=== PATIENT | male | born 1950 | race American Indian/Alaskan Native ===

== ENCOUNTER 2019-02-09 05:39 | Day surgery (SDC) | payer MEDICARE ==
--- NOTE | 2019-02-01 13:20 | Anesthesia Consultation ---
Anesthesia Consult and Med Hx Date of service: 02/01/19 - Airway Anesthetic Teeth Evaluation: Poor, Chipped, Crowns ROM Head & Neck: Adequate Mental/Hyoid Distance: Adequate Mallampati Class: Class III Intubation Access Assessment: Probably Good - Pulmonary Exam CTA: Yes - Cardiac Exam Cardiac Exam: No Murmur Anesthetic Concerns: Had Aortic Valve replacement in 2016. NO problems since. Did have a history of CHF prior to AVR. Currently taking daily lasix. History of stage 4 renal insufficiency, labs pending. Restricted to a 2L per day fluid intake. - Pre-Operative Health Status ASA Pre-Surgery Classification: ASA3 Proposed Anesthetic Plan: General - Pre-Anesthesia Comment Pre-Anesthesia Comments: Refer to cardiac exam comments - Pulmonary Hx Smoking: No Hx Asthma: No Hx Respiratory Symptoms: No SOB: No COPD: No Home Oxygen Therapy: No Hx Pneumonia: No Hx Sleep Apnea: No - Cardiovascular System Hx Hypertension: Yes Hx Coronary Artery Disease: No Hx Heart Attack/AMI: No Hx Angina: No Hx Percutaneous Transluminal Coronary Angioplasty (PTCA): No Hx Cardia Arrhythmia: No Hx Pacemaker: No Hx Internal Defibrillator: No Hx Valvular Heart Disease: No Hx Heart Murmur: No Hx Peripheral Vascular Disease: No - Central Nervous System Hx Neuromuscular Disorder: No Hx Seizures: No CVA: No Hx Back Pain: No Hx Psychiatric Problems: No - Gastrointestinal Hx Ulcer: No Hx Gastroesophageal Reflux Disease: No - Endocrine Hx Renal Disease: Yes (Diagnosed with Stage 4 renal insufficiency) Hx End Stage Renal Disease: No Hx Cirrhosis: No Hx Liver Disease: No Hx Insulin Dependent Diabetes: No Hx Non-Insulin Dependent Diabetes: No Hx Thyroid Disease: No Hx Hypothyroidism: No Hx Hyperthyroidism: No - Hematic Hx Anemia: No Hx Sickle Cell Disease: No - Other Systems Hx Alcohol Use: Yes (Couple of drinks per week) Hx Substance Use: No Hx Cancer: No Hx Obesity: No
[~2019-02-09 05:39] MED LIST: TORADOL IV ONE
[2019-02-09] MEDS ORDERED: FLAGYL 500 MG/100 ML 500 MG/100 ML BAG IV NR (06:00)
[2019-02-09] MEDS ORDERED: ANCEF/STERILE WATER 2 GM/20 ML 2 GM/20 ML SYRINGE IV NR ×2 (06:00→07:00)
[2019-02-09] MEDS ORDERED: MARCAINE-EPI 0.5%-1:200,000 INFILTRATI ONE ×3 (06:35→08:26)
[2019-02-09] MEDS ORDERED: XYLOCAINE 1% 20 mL ONE (06:35)
[2019-02-09] MEDS ORDERED: TORADOL ONE (06:36)
[2019-02-09] MEDS ORDERED: NORCO 5/325 PO PRN (06:47)
[2019-02-09] MEDS ORDERED: NACL BACTERIOSTATIC INFILTRATI ONE (06:59)
[2019-02-09] MEDS ORDERED: ZOFRAN IV PRN (07:12)
[2019-02-09] MEDS ORDERED: SUBLIMAZE IV PRN (07:12)
--- NOTE | 2019-02-09 07:15 | Anesthesia Day of Surgery ---
Anesthesia Day of Surgery - Day of Surgery Patient Examined: Yes Patient H&P Reviewed: Yes Patient is NPO: Yes Beta Blockers: Yes
[2019-02-09] MEDS ORDERED: DIPRIVAN 10 MG/ML IV ONE (07:26)
[2019-02-09] MEDS ORDERED: DECADRON ONE (07:26)
[2019-02-09] MEDS ORDERED: SUBLIMAZE ONE (07:26)
[2019-02-09] MEDS ORDERED: XYLOCAINE MPF 2% ONE (07:26)
[2019-02-09] MEDS ORDERED: ZEMURON IV ONE (07:26)
[2019-02-09] MEDS ORDERED: LACTATED RINGERS 1,000 ML ONE (07:45)
[2019-02-09] MEDS ORDERED: NACL 0.9% 1000 ML 1,000 ML IV SCH (08:00)
[2019-02-09] MEDS ORDERED: XYLOCAINE 1% 20 mL INFILTRATI ONE ×2 (08:26)
[2019-02-09] MEDS ORDERED: TORADOL IV ONE (09:07)
[2019-02-09] MEDS ORDERED: ROBINUL ONE (09:12)
[2019-02-09] MEDS ORDERED: BLOXIVERZ ONE (09:12)
--- NOTE | 2019-02-09 09:45 | Discharge Summary ---
Providers - Providers Date of Admission: 02/09/2019 Date of discharge: 02/09/19 Attending physician: ISIDRO DHALIWAL Primary care physician: SKIP OPERATOR Hospitalization Condition: Good Procedures: Lap Left inguinal hernia repair Disposition: -01 TO HOME OR SELFCARE Core Measure Documentation - Palliative Care Palliative Care/ Comfort Measures: Not Applicable - Core Measures Any of the following diagnoses?: none Exam - Constitutional Vitals: Temp Pulse Resp BP Pulse Ox 97.5 F L 56 L 20 118/69 97 02/01/19 10:30 02/01/19 10:30 02/01/19 10:30 02/01/19 10:30 02/01/19 10:30 General appearance: Present: no acute distress, well-nourished - EENT Eyes: Present: PERRL, EOM intact ENT: hearing intact, clear oral mucosa, dentition normal - Neck Neck: Present: supple, normal ROM - Respiratory Respiratory effort: normal Respiratory: bilateral: CTA - Cardiovascular Rhythm: regular - Extremities Extremities: no ischemia, pulses intact, pulses symmetrical, No edema, normal temperature, normal color, Full ROM Peripheral Pulses: within normal limits - Abdominal General gastrointestinal: Present: soft, non-tender, non-distended, normal bowel sounds Male genitourinary: Present: normal - Rectal Rectal Exam: deferred - Integumentary Integumentary: Present: clear, warm, dry - Musculoskeletal Musculoskeletal: strength equal bilaterally - Psychiatric Psychiatric: appropriate mood/affect Plan Follow up with: ISIDRO DHALIWAL MD [Staff Physician] - 7 Days
[2019-02-09 10:09] VITALS: BP 137/70
--- NOTE | 2019-02-09 17:07 | Post Anesthesia Evaluation ---
- Post Anesthesia Evaluation Patient Participated: Yes Airway Patent: Yes Stable Respiratory Function: Yes Nausea/Vomiting: No Temp > 96.8F: Yes Pain Manageable: Yes Adequeate Hydration: Yes Anesthesia Complications: No
== END 2019-02-09 05:40 | disposition home or self-care (01) ==
LOC: OR 05:39 → EDSTATUS 17:00
PROVIDERS: ATTEND Specialist
DX: K40.30 Unilateral inguinal hernia, with obstruction, without gangrene, not specified as recurrent (principal); I13.0 Hypertensive heart and chronic kidney disease with heart failure and stage 1 through stage 4 chronic kidney disease, or unspecified chronic kidney disease; I50.9 Heart failure, unspecified; K21.9 Gastro-esophageal reflux disease without esophagitis; M10.9 Gout, unspecified; N18.4 Chronic kidney disease, stage 4 (severe); G47.33 Obstructive sleep apnea (adult) (pediatric); Z72.89 Other problems related to lifestyle; Z98.890 Other specified postprocedural states; Z79.899 Other long term (current) drug therapy; Z79.82 Long term (current) use of aspirin; Z87.891 Personal history of nicotine dependence; Z95.2 Presence of prosthetic heart valve; Z96.643 Presence of artificial hip joint, bilateral
CPT/HCPCS: 49650; C1726; C1781; J0690; J1100; J1885; J2405; J2704; J2710; J3010; J7030; J7120